=== PATIENT | male | born 1990 | race Caucasian/White ===

== ENCOUNTER 2018-01-19 12:42 | Day surgery (SDC) | payer OTHER ==
[~2018-01-19] VITALS: Ht 185.4 cm; Wt 115.9 kg
[2018-01-19 13:34] VITALS: BP 148/73; PULSE 65; TEMP 98.9
[2018-01-19 14:55] VITALS: BP 123/81; PULSE 82; TEMP 97.8
[2018-01-19 15:10] VITALS: BP 125/72; PULSE 75
[2018-01-19 15:25] VITALS: BP 118/78; PULSE 79
== END 2018-01-19 15:37 | disposition home or self-care (01) ==
LOC: SDCO 12:42
DX: D12.8 Benign neoplasm of rectum (principal); K21.0 Gastro-esophageal reflux disease with esophagitis; R19.7 Diarrhea, unspecified; Z87.891 Personal history of nicotine dependence; F41.9 Anxiety disorder, unspecified
CPT/HCPCS: J2250; J2405; J3010; J7030